=== PATIENT | female | born 1935 | race Caucasian/White ===

== ENCOUNTER 2016-12-29 11:32 | Outpatient (CLI) | payer MEDICARE ==
[2016-12-29 12:48] LABS: Blood, Urine Moderate (Negative); Clarity Slightly Cloudy (Clear); Glucose, Urine (Dipstick) Negative (Negative); Leukocyte Moderate (Negative); Nitrite Negative (Negative); Protein, Urine (Dipstick) 30 mg/dL (Neg-Trace); Specific Gravity, Urine 1.015 (1.005-1.030); Urobilinogen 0.2 mg/dL (0.2-1.0)
[2016-12-29 12:50] LABS: Bilirubin Negative (Negative); Icto Negative (Negative)
[2016-12-29 13:42] LABS: Bacteria/HPF 1+ HPF (None Seen); RBC/HPF 0-3 HPF (0-3); Squamous Epithelial 0-3 HPF (0-3)
== END 2016-12-29 11:33 | disposition home or self-care (01) ==
LOC: NAVSJIPCSP 11:32
PROVIDERS: ATTEND Family Medicine
DX: R30.0 Dysuria (principal)
CPT/HCPCS: 81003; 81015

== ENCOUNTER 2017-02-11 12:05 | Outpatient (CLI) | payer MEDICARE ==
[2017-02-11 13:18] LABS: Hemoglobin A1c 5.9 % (4.0-6.0)
[2017-02-11 13:26] LABS: ALT (SGPT) 7 U/L (8-55); AST (SGOT) 18 U/L (5-34); Albumin 3.3 g/dL (3.4-4.8); Alkaline Phosphatase 77 U/L (40-150); Anion Gap 15 mmol/L (10-20); BUN (Urea Nitrogen) 12 mg/dL (9.8-20.1); Bilirubin, Direct 0.1 mg/dL (0.1-0.3); Bilirubin, Total 0.4 mg/dL (0.2-1.2); Calc. Creatinine Clearance 0 mL/min (70-130); Calcium 9.2 mg/dL (7.8-10.44); Carbon Dioxide 24 mmol/L (23-31); Cardiac Risk 4.8 (Less than 4.5); Chloride 102 mmol/L (98-107); Cholesterol 228 mg/dl (< 200 Desired); Estimated GFR-MDRD 80; Glucose 100 mg/dL (83-110); HDL Cholesterol 48 mg/dL (>60 Neg Risk); LDL Cholesterol, Calculated 162 mg/dL; Potassium 4.4 mmol/L (3.5-5.1); Protein, Total 7.7 g/dL (6.0-8.3); Sodium 137 mmol/L (136-145); Triglycerides 89 mg/dL (Less than 150)
[2017-02-11 13:33] LABS: #Lymphocytes 1.6 thou/uL (1.20-3.40); #Monocytes 0.6 thou/uL (0.11-0.59); #Neutrophils 4.9 thou/uL (1.40-6.50); %Basophils 0.4 % (0.0-1.0); %Eosinophils 0.5 % (0.0-10.0); %Lymphocytes 21.7 % (21.0-51.0); %Monocytes 8.1 % (0.0-10.0); %Neutrophils 69.3 % (42.0-75.0); Anisocytosis MODERATE=16-30 cells (100X) (0-5/hpf); Hemoglobin 10.4 g/dL (12.0-16.0); Hypochromia SLIGHT = 6-15 cells (100X) (0-5/hpf); MDiff Complete? YES; Mean Corpuscular HGB CONC 30.8 g/dL (32.0-36.0); Mean Corpuscular Hemoglobin 24.4 pg (27.0-31.0); Mean Corpuscular Volume 79.3 fl (81.0-99.0); Mean Platelet Volume 5.9 fL (7.4-10.4); Platelet Count 259 thou/uL (130-400); RBC Distribution Width 15.8 % (11.5-14.5); Red Blood Cell (RBC) Count 4.27 mill/uL (4.20-5.40); White Blood Cell (WBC) Count 7.1 thou/uL (4.8-10.8)
== END 2017-02-11 12:06 | disposition home or self-care (01) ==
LOC: NAVSJIPCSP 12:05
PROVIDERS: ATTEND Family Medicine
DX: E03.9 Hypothyroidism, unspecified (principal); I10 Essential (primary) hypertension; I25.10 Atherosclerotic heart disease of native coronary artery without angina pectoris; K21.9 Gastro-esophageal reflux disease without esophagitis; J30.9 Allergic rhinitis, unspecified; Z79.899 Other long term (current) drug therapy
CPT/HCPCS: 36415; 80048; 80061; 80076; 83036; 84443; 85025

== ENCOUNTER 2017-06-18 09:29 | Outpatient (CLI) | payer MEDICARE ==
[2017-06-18 12:34] LABS: ALT (SGPT) 12 U/L (8-55); AST (SGOT) 17 U/L (5-34); Albumin 3.5 g/dL (3.4-4.8); Alkaline Phosphatase 77 U/L (40-150); Bilirubin, Direct 0.1 mg/dL (0.1-0.3); Bilirubin, Total 0.3 mg/dL (0.2-1.2); Cholesterol 176 mg/dl (< 200 Desired); HDL Cholesterol 44 mg/dL (>60 Neg Risk); LDL Cholesterol, Calculated 111 mg/dL; Protein, Total 7.5 g/dL (6.0-8.3); Triglycerides 105 mg/dL (Less than 150)
[2017-06-18 12:40] LABS: Hemoglobin A1c 5.9 % (4.0-6.0)
[2017-06-18 13:01] LABS: #Basophils 0.1 thou/uL (0.0-0.2); #Eosinphils 0.1 thou/uL (0.0-0.7); #Lymphocytes 1.4 thou/uL (1.20-3.40); #Monocytes 0.5 thou/uL (0.11-0.59); #Neutrophils 5.1 thou/uL (1.40-6.50); %Basophils 0.8 % (0.0-1.0); %Eosinophils 1.2 % (0.0-10.0); %Lymphocytes 19.5 % (21.0-51.0); %Monocytes 7.1 % (0.0-10.0); %Neutrophils 71.4 % (42.0-75.0); Anisocytosis SLIGHT = 6-15 cells (100X) (0-5/hpf); Hemoglobin 10.9 g/dL (12.0-16.0); Hypochromia SLIGHT = 6-15 cells (100X) (0-5/hpf); MDiff Complete? YES; Mean Corpuscular HGB CONC 30.7 g/dL (32.0-36.0); Mean Corpuscular Hemoglobin 24.6 pg (27.0-31.0); Mean Corpuscular Volume 80.2 fl (81.0-99.0); Mean Platelet Volume 5.4 fL (7.4-10.4); Microcytosis SLIGHT = 6-15 cells (100X) (0-5/hpf); Platelet Count 223 thou/uL (130-400); RBC Distribution Width 16.7 % (11.5-14.5); Red Blood Cell (RBC) Count 4.44 mill/uL (4.20-5.40); White Blood Cell (WBC) Count 7.2 thou/uL (4.8-10.8)
== END 2017-06-18 09:30 | disposition home or self-care (01) ==
LOC: NAVSJIPCSP 09:29
PROVIDERS: ATTEND Family Medicine
DX: E03.9 Hypothyroidism, unspecified (principal); M06.9 Rheumatoid arthritis, unspecified; I25.10 Atherosclerotic heart disease of native coronary artery without angina pectoris; I10 Essential (primary) hypertension; Z79.899 Other long term (current) drug therapy
CPT/HCPCS: 36415; 80061; 80076; 83036; 84443; 85025

== ENCOUNTER 2019-09-02 11:06 | Emergency (ER) | payer MEDICARE ==
[2019-09-02] MEDS ORDERED: Acetaminophen 325 MG TAB ONE (12:04)
--- NOTE | 2019-09-02 13:07 | RAD ---
PA CHEST AND RIGHT RIBS: INDICATION: Rib pain. FINDINGS: PA chest shows cardiomegaly. There is evidence of bilateral pleural effusions blunting both CP angle s. Mild vascular engorgement. No evidence of right rib fracture identified. IMPRESSION: 1. Cardiomegaly with bilateral effusions. 2. No evidence of right rib fracture. POS: OFF
[2019-09-02] MEDS ORDERED: Furosemide 40 MG TAB ONE (13:55)
[2019-09-02] MEDS ORDERED: Potassium Chloride 20 MEQ TAB ONE (13:55)
== END 2019-09-02 14:43 | disposition home or self-care (01) ==
LOC: NAV ERS 11:06
DX: S20.211A Contusion of right front wall of thorax, initial encounter (principal); J90 Pleural effusion, not elsewhere classified; I10 Essential (primary) hypertension; Z79.899 Other long term (current) drug therapy; W18.30XA Fall on same level, unspecified, initial encounter
CPT/HCPCS: 94799

== ENCOUNTER 2019-11-13 13:31 | Emergency (ER) | payer MEDICARE ==
--- NOTE | 2019-11-13 14:18 | CT ---
EXAM: CT brain without contrast HISTORY: Fell and hit frontal portion of her head. Head trauma. COMPARISON: None TECHNIQUE: Multiple contiguous axial images were obtained and a CT of the brain without contrast. FINDINGS: There are scattered hypodensities in the subcortical and periventricular white matter consi stent with small vessel ischemic disease. There is no evidence of hydrocephalus, intracranial hemorrhage, or extra-axial fluid collection. A calcified mass is seen along the right parietal convexity which could represent a calcified meningi dain or exophytic ostial benign lesion. Soft tissue swelling is seen in the forehead. The underlying calvarium in the frontal region is unremarkable. There is opacification of the left mastoid air cells and middle ear. IMPRESSION: 1. No evidence of acute intracranial abnormality 2. 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
--- NOTE | 2019-11-13 14:20 | CT ---
EXAM: CT of the cervical spine without contrast HISTORY: Neck pain after head trauma COMPARISON: None TECHNIQUE: Multiple contiguous axial images were obtained in a CT of the cervical spine without contr ast. Sagittal and coronal reformats were performed. FINDINGS: The vertebral bodies demonstrate normal height and alignment without fracture or subluxatio n. Moderate degenerative changes are seen throughout the cervical spine. No prevertebral soft tissue swelling is seen. The posterior facets are well aligned. Normal alignment of the skull base with the cervical spine is seen. The lung apices and cervical soft tissues are unremarkable. There is opacification of the left mastoi d air cells and middle ear. IMPRESSION: No evidence of acute osseous abnormality of the cervical spine.
== END 2019-11-13 14:50 | disposition home or self-care (01) ==
LOC: NAV ERS 13:31
DX: S00.83XA Contusion of other part of head, initial encounter (principal); I10 Essential (primary) hypertension; M19.90 Unspecified osteoarthritis, unspecified site; Z79.82 Long term (current) use of aspirin; Z79.899 Other long term (current) drug therapy; Z91.81 History of falling; W10.2XXA Fall (on)(from) incline, initial encounter
CPT/HCPCS: 70450; 72125; L0120

== ENCOUNTER 2020-05-24 13:09 | Emergency (ER) | payer MEDICARE, OTHER ==
[2020-05-24 13:56] LABS: Lactic Acid 1.2 mmol/L (0.5-2.2)
[2020-05-24 14:01] LABS: ALT (SGPT) 7 U/L (8-55); AST (SGOT) 10 U/L (5-34); Albumin 3.4 g/dL (3.4-4.8); Alkaline Phosphatase 75 U/L (40-110); Anion Gap 15 mmol/L (10-20); BUN (Urea Nitrogen) 12 mg/dL (9.8-20.1); Bilirubin, Total 0.3 mg/dL (0.2-1.2); Calc. Creatinine Clearance 0 mL/min (70-130); Calcium 9.1 mg/dL (7.8-10.44); Carbon Dioxide 21 mmol/L (23-31); Chloride 102 mmol/L (98-107); Estimated GFR-MDRD 70; Globulin 4.1 g/dL (2.4-3.5); Glucose 128 mg/dL (83-110); Lipase 13 U/L (8-78); Potassium 3.4 mmol/L (3.5-5.1); Protein, Total 7.5 g/dL (6.0-8.3); Sodium 135 mmol/L (136-145)
[2020-05-24 14:09] LABS: Hemoglobin 10.3 g/dL (12.0-16.0); Mean Corpuscular HGB CONC 29.1 g/dL (32.0-36.0); Mean Corpuscular Volume 75.5 fL (78.0-98.0); Mean Platelet Volume 5.9 fL (7.4-10.4); Platelet Count 241 thou/uL (130-400); RBC Distribution Width 16.6 % (11.5-14.5); Red Blood Cell (RBC) Count 4.68 mill/uL (4.20-5.40); White Blood Cell (WBC) Count 6.3 thou/uL (4.8-10.8)
[2020-05-24] MEDS ORDERED: Sodium Chloride 0.9% 1,000 ML ONE (14:13)
[2020-05-24 14:23] LABS: Anisocytosis SLIGHT = 6-15 cells (100X) (0-5/hpf); Hypochromia SLIGHT = 6-15 cells (100X) (0-5/hpf); Lymphocytes 26 % (21-51); MDiff Complete? YES; Microcytosis SLIGHT = 6-15 cells (100X) (0-5/hpf); Monocytes 6 % (0-10); Neutrophil 68 % (42-75); Platelet Morphology Comment Appears Adequate
[2020-05-24 14:29] LABS: CKMB 0.9 ng/mL (0-6.6)
[2020-05-24] MEDS ORDERED: Aspirin Chewable 81 MG TAB ONE (14:29)
[2020-05-24 15:02] LABS: Bilirubin Moderate (Negative); Blood, Urine Moderate (Negative); Clarity Clear (Clear); Glucose, Urine (Dipstick) Negative (Negative); Ketone, Urine 15 mg/dL (Negative); Leukocyte Negative (Negative); Nitrite Negative (Negative); Protein, Urine (Dipstick) 100 mg/dL (Neg-Trace); Specific Gravity, Urine 1.025 (1.005-1.030); Urobilinogen 0.2 mg/dL (Less than 2); pH, Urine 5.5 (5.0-9.0)
--- NOTE | 2020-05-24 15:13 | RAD ---
SINGLE VIEW OF THE CHEST: 05/24/20 COMPARISON: 10/22/19 HISTORY: Fatigue. FINDINGS: Single view of the chest shows an enlarged but stable cardiomediastinal silhouette with atherosclerot ic calcifications in the aorta. Chronic interstitial lung markings are present. There appears to be a small left pleural effusion, unchanged. Degenerative changes are seen in the spine. IMPRESSION: Cardiomegaly and small left pleural effusion. POS: EAA
[2020-05-24 15:45] LABS: Bacteria/HPF Rare-Few HPF (None Seen); Squamous Epithelial 0-3 HPF (0-3)
== END 2020-05-24 16:39 | disposition short-term general hospital (02) ==
LOC: NAV ERS 13:09
DX: R53.83 Other fatigue (principal); R19.7 Diarrhea, unspecified; Z20.828 Contact with and (suspected) exposure to other viral communicable diseases; R53.1 Weakness; R11.0 Nausea; I10 Essential (primary) hypertension; M19.90 Unspecified osteoarthritis, unspecified site; K21.9 Gastro-esophageal reflux disease without esophagitis; E03.9 Hypothyroidism, unspecified; Z79.82 Long term (current) use of aspirin; Z79.899 Other long term (current) drug therapy
CPT/HCPCS: 51701; 71045; 80053; 81003; 81015; 82553; 83605; 83690; 83880; 84484; 85025; 93005; 96360; J7050

== ENCOUNTER 2020-06-13 14:41 | Emergency (ER) | payer MEDICARE ==
[2020-06-13 16:08] LABS: ALT (SGPT) Less than 6 U/L (8-55); AST (SGOT) 11 U/L (5-34); Albumin 3.1 g/dL (3.4-4.8); Alkaline Phosphatase 67 U/L (40-110); Anion Gap 17 mmol/L (10-20); BUN (Urea Nitrogen) 12 mg/dL (9.8-20.1); Bilirubin, Total 0.3 mg/dL (0.2-1.2); Calc. Creatinine Clearance 0 mL/min (70-130); Calcium 8.8 mg/dL (7.8-10.44); Carbon Dioxide 24 mmol/L (23-31); Chloride 102 mmol/L (98-107); Estimated GFR-MDRD 79; Globulin 3.9 g/dL (2.4-3.5); Glucose 103 mg/dL (83-110); Potassium 3.6 mmol/L (3.5-5.1); Sodium 139 mmol/L (136-145)
[2020-06-13 16:13] LABS: #Monocytes 0.6 thou/uL (0.11-0.59); #Neutrophils 3.2 thou/uL (1.40-6.50); %Basophils 0.4 % (0.0-1.0); %Eosinophils 0.5 % (0.0-10.0); %Lymphocytes 21.1 % (21.0-51.0); %Monocytes 11.8 % (0.0-10.0); %Neutrophils 66.1 % (42.0-75.0); Hemoglobin 9.8 g/dL (12.0-16.0); Mean Corpuscular HGB CONC 28.5 g/dL (32.0-36.0); Mean Corpuscular Hemoglobin 21.4 pg (27.0-31.0); Mean Corpuscular Volume 75.2 fL (78.0-98.0); Mean Platelet Volume 6.4 fL (7.4-10.4); Platelet Count 208 thou/uL (130-400); Red Blood Cell (RBC) Count 4.57 mill/uL (4.20-5.40); White Blood Cell (WBC) Count 4.8 thou/uL (4.8-10.8)
[2020-06-13 16:16] LABS: Bilirubin Negative (Negative); Blood, Urine Moderate (Negative); Glucose, Urine (Dipstick) Negative (Negative); Ketone, Urine Trace mg/dL (Negative); Leukocyte Small (Negative); Nitrite Positive (Negative); Protein, Urine (Dipstick) 100 mg/dL (Neg-Trace); Urobilinogen 0.2 mg/dL (Less than 2); pH, Urine 6.5 (5.0-9.0)
[2020-06-13 16:26] LABS: Bacteria/HPF 4+ HPF (None Seen); Clarity Hazy (Clear); RBC/HPF 0-3 HPF (0-3); Squamous Epithelial 0-3 HPF (0-3)
[2020-06-13] MEDS ORDERED: Cephalexin 250 MG CAP ONE (16:46)
== END 2020-06-13 17:05 | disposition home or self-care (01) ==
LOC: NAV ERS 14:41
DX: N30.00 Acute cystitis without hematuria (principal); D64.9 Anemia, unspecified; I10 Essential (primary) hypertension; E03.9 Hypothyroidism, unspecified; Z79.899 Other long term (current) drug therapy; Z79.82 Long term (current) use of aspirin
CPT/HCPCS: 51701; 80053; 81003; 81015; 83605; 84484; 85025; 87077; 87086; 87186; 93005

== ENCOUNTER 2020-09-24 21:59 | Inpatient (IN) | payer MEDICARE ==
[2020-09-24 22:47] LABS: %Lymphocytes 8.6 % (21.0-51.0); %Monocytes 8.5 % (0.0-10.0); %Neutrophils 82.5 % (42.0-75.0); Hemoglobin 9.5 g/dL (12.0-16.0); Manual Diff?? NO; Mean Corpuscular HGB CONC 30.4 g/dL (32.0-36.0); Mean Corpuscular Hemoglobin 23.8 pg (27.0-31.0); Mean Corpuscular Volume 78.3 fL (78.0-98.0); Mean Platelet Volume 5.4 fL (7.4-10.4); Platelet Count 217 thou/uL (130-400); RBC Distribution Width 17.4 % (11.5-14.5); Red Blood Cell (RBC) Count 3.98 mill/uL (4.20-5.40); White Blood Cell (WBC) Count 6.7 thou/uL (4.8-10.8)
[2020-09-24 22:48] LABS: #Lymphocytes 0.6 thou/uL (1.20-3.40); #Monocytes 0.6 thou/uL (0.11-0.59); #Neutrophils 5.5 thou/uL (1.40-6.50); %Basophils 0.3 % (0.0-1.0); %Eosinophils 0.1 % (0.0-10.0); Hypochromia SLIGHT = 6-15 cells (100X) (0-5/hpf); Microcytosis SLIGHT = 6-15 cells (100X) (0-5/hpf); Platelet Morphology Comment Appears Adequate
[2020-09-24 23:05] LABS: ALT (SGPT) Less than 6 U/L (8-55); AST (SGOT) 11 U/L (5-34); Alkaline Phosphatase 72 U/L (40-110); Anion Gap 17 mmol/L (10-20); BUN (Urea Nitrogen) 11 mg/dL (9.8-20.1); Bilirubin, Total 0.4 mg/dL (0.2-1.2); CK (CPK) 59 U/L (29-168); Calc. Creatinine Clearance 0 mL/min (70-130); Carbon Dioxide 22 mmol/L (23-31); Chloride 99 mmol/L (98-107); Globulin 4.2 g/dL (2.4-3.5); Glucose 143 mg/dL (83-110); Potassium 3.7 mmol/L (3.5-5.1); Protein, Total 7.2 g/dL (6.0-8.3); Sodium 134 mmol/L (136-145)
--- NOTE | 2020-09-24 23:14 | CT ---
EXAM: CT brain without contrast HISTORY: Dizziness and fall with head injury COMPARISON: 06/29/2020 TECHNIQUE: Multiple contiguous axial images were obtained and a CT of the brain without contrast. Sag ittal and coronal reformats were performed. FINDINGS: There are scattered hypodensities in the subcortical and periventricular white matter consi stent with small vessel ischemic disease. There is a stable calcified mass along the posterior right falx which likely represents a calcified meningioma. There is no evidence of hydrocephalus, int racranial hemorrhage, or extra-axial fluid collection. The calvarium and overlying soft tissues are unremarkable. There is a persistent opacification of the left mastoid air cells. The visualized paranasal sinuses and right mastoid air cells are well aerated. IMPRESSION: No evidence of acute intracranial abnormality
--- NOTE | 2020-09-24 23:18 | CT ---
EXAM: CT of the cervical spine without contrast HISTORY: Fall with head trauma and neck pain COMPARISON: 11/13/2019 TECHNIQUE: Multiple contiguous axial images were obtained in a CT of the cervical spine without contr ast. Sagittal and coronal reformats were performed. FINDINGS: The vertebral bodies demonstrate normal height and alignment without fracture or subluxatio n. Moderate degenerative changes are seen throughout the cervical spine. No prevertebral soft tissue swelling is seen. The posterior facets are well aligned. Normal alignment of the skull base with the cervical spine is seen. Calcifications are seen in the carotid arteries. There is opacification the left mastoid air cells. T here are small bilateral pleural effusions. IMPRESSION: 1. No evidence of acute osseous abnormality of the cervical spine. 2. Bilateral pleural effusions
[2020-09-25] MEDS ORDERED: Acetaminophen 325 MG TAB PO PRN (01:15)
[2020-09-25 01:16] LABS: SARS-CoV-2 NAA Rapid Test Not Detected (NotDetected)
[2020-09-25] MEDS ORDERED: Meclizine HCl 25 MG TAB PO PRN (11:41)
--- NOTE | 2020-09-25 13:41 | HP ---
PRINCIPAL DIAGNOSES: Status post fall and deconditioning, for further evaluation, and possible detention placement. BRIEF HISTORY: This is an 85-year-old female, who is a patient of Dr. Thao, apparently fell at home and presented to the emergency room for evaluation. She apparently was cooking in her kitchen and dropped something on the floor. She leaned down to pick pack worker the cup, but felt dizzy and fell forward. She apparently also hit her head as she first fell forward, then tipped backwards. No loss of consciousness. She was unable to get up off the floor for 5 hours. Apparently, the pot she was cooking in was smoking and she had to use her cane to push it to another burner. Workup in the emergency room showed hemoglobin of 9.5, hematocrit of 30.2, potassium was low at 2.7 and she was admitted overnight for observation. No further episodes of lightheadedness or dizziness. Currently resting in bed and denies any concerns expect feeling weak. She states that she really cannot manage herself living alone. She is agreeable for therapy here and possible short-term detention placement. No family at bedside. PAST MEDICAL HISTORY: 1. Rheumatoid arthritis. 2. Hypertension. 3. Dyslipidemia. 4. Hypothyroidism. 5. Osteoarthritis. 6. Overactive bladder with incontinence. PAST SURGICAL HISTORY: None significant. FAMILY HISTORY: Noncontributory to current admission. PSYCHOSOCIAL HISTORY: Lives alone. Denies any tobacco, alcohol, or recreational drug abuse. ALLERGIES: TO CIPROFLOXACIN AND ROSUVASTATIN. REVIEW OF SYSTEMS: GENERAL: Denies any weight loss or fever. CARDIOVASCULAR SYSTEM: Denies any chest pain, shortness of breath, palpitations, PND, orthopnea, or pedal edema. RESPIRATORY SYSTEM: Denies any chronic cough, expectoration, or pleuritic-type chest pain. GASTROINTESTINAL SYSTEM: Denies any nausea, vomiting, diarrhea, constipation, hematemesis, melena, or hematochezia. GENITOURINARY SYSTEM: Occasional incontinence. Denies any dysuria or hematuria. CENTRAL NERVOUS SYSTEM: Generalized weakness with episodes of lightheadedness and dizziness, frequent falls. No loss of consciousness. EXTREMITIES: Significant damage to her hands from rheumatoid arthritis. 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 No cyanosis, clubbing, or edema. SKIN: Denies any rash. ENT: Denies any changes with speech, vision, hearing, or swallowing. PHYSICAL EXAMINATION: GENERAL: Pleasant, 85-year-old, thin female, resting in bed and denies any concerns. She is alert, awake, and oriented x3. VITAL SIGNS: She is afebrile. Heart rate 70, respirations 18, oxygen saturation 94% on room air, blood pressure 128/68. HEENT: Normocephalic and atraumatic. Pupils are equally reactive to light and accommodation. No JVD, thyromegaly, cervical adenopathy, or throat exudates. No carotid bruits. CARDIOVASCULAR SYSTEM: S1 and S2 plus. Rate and rhythm regular. RESPIRATORY SYSTEM: Normal vesicular breath sounds heard in all lung [place]. ABDOMEN: Soft and nontender. Bowel sounds heard in all quadrants. EXTREMITIES: Without cyanosis or clubbing. Evidence for long-standing rheumatoid arthritis is noted with joint destruction. CENTRAL NERVOUS SYSTEM: Awake and responsive. Cranial nerves 2 through 12 are intact. Generalized weakness. Limited exam due to the patient too weak to stand to do her Romberg. LABORATORY VALUES: White count is 6.7, hemoglobin and hematocrit are 9.5 and 31.2. Sodium 134, potassium 3.7, BUN and creatinine are 11 and 0.7. IMPRESSION: 1. Recent fall with lightheadedness and dizziness. 2. Hypertension. 3. Dyslipidemia. 4. Hypothyroidism. 5. Rheumatoid arthritis. 6. Overactive bladder with urinary incontinence. 7. Osteoarthritis. 8. Deconditioning. 9. Anemia, likely due to chronic disease. PLAN: 1. Continue home medications. 2. Hold Crestor as there is allergy listed for Crestor. 3. Heart healthy diet. 4. Encourage p.o. fluid intake. 5. Fall precautions. 6. PT/OT eval and treat. 7. Case Management consult for possible detention placement. 8. DVT prophylaxis with PlexiPulses. 9. Decubitus precautions. 10. Stress ulcer prophylaxis, she is on Prilosec. 11. Dr. Master swanson [facility]. Job ID: [id number]
[2020-09-25] MEDS: Acetaminophen 325 MG TAB PO PRN (21:20)
[2020-09-26] MEDS: Levothyroxine Sodium 25 MCG TAB PO SCH (05:29)
[2020-09-26 05:41] LABS: Anion Gap 12 mmol/L (10-20); BUN (Urea Nitrogen) 14 mg/dL (9.8-20.1); Calc. Creatinine Clearance 38 mL/min (70-130); Calcium 8.5 mg/dL (7.8-10.44); Carbon Dioxide 27 mmol/L (23-31); Chloride 104 mmol/L (98-107); Glucose 112 mg/dL (83-110); Potassium 3.5 mmol/L (3.5-5.1); Sodium 139 mmol/L (136-145)
[2020-09-26 05:57] LABS: Hemoglobin 8.6 g/dL (12.0-16.0); MDiff Complete? YES; Manual Diff?? YES; Mean Corpuscular HGB CONC 30.2 g/dL (32.0-36.0); Mean Corpuscular Hemoglobin 23.8 pg (27.0-31.0); Mean Platelet Volume 5.5 fL (7.4-10.4); Neutrophil 64 % (42-75); Platelet Count 217 thou/uL (130-400); RBC Distribution Width 17.4 % (11.5-14.5); Red Blood Cell (RBC) Count 3.62 mill/uL (4.20-5.40)
[2020-09-26 05:58] LABS: Band 9 % (5-11); Eosinophils 3 % (0-10); Hypochromia MODERATE=16-30 cells (100X) (0-5/hpf); Lymphocytes 21 % (21-51); Microcytosis SLIGHT = 6-15 cells (100X) (0-5/hpf); Monocytes 3 % (0-10); Platelet Morphology Comment Appears Adequate
[2020-09-26] MEDS: Amlodipine 5 MG TAB PO SCH (08:34)
[2020-09-26] MEDS: Aspirin 81 mg Enteric Coated Tablet PO SCH (08:34)
[2020-09-26] MEDS: FLUoxetine HCl 20 MG CAP PO SCH (08:35)
[2020-09-26] MEDS: Fluticasone Propionate Nasal Spray 16 gm Bottle NASAL SCH (08:35)
[2020-09-26] MEDS: Folic Acid 1 MG TAB PO SCH (08:36)
[2020-09-26] MEDS: METHYLCELLULOSE 500 MG PO SCH (08:36)
[2020-09-26] MEDS: OXYBUTYNIN 15 MG PO SCH (09:11)
--- NOTE | 2020-09-26 10:00 | PRG ---
DATE OF SERVICE: 09/26/2020 SUBJECTIVE: The patient is a pleasant 85-year-old female, here status post fall where she did hit her head. She is here for deconditioning and possible physical therapy as well. REVIEW OF SYSTEMS: Denies any fever, chills, cough, congestion, chest pain, palpitations, nausea, vomiting, or diarrhea. OBJECTIVE: VITAL SIGNS: Temperature 97 degrees Fahrenheit, pulse 75, respirations 18, O2 sats 93% to 97% on room air, blood pressure 129/63 to 156/67. IMPRESSION: 1. Recent fall, etiology unknown. 2. Hypertension. 3. Hyperlipidemia. 4. Hypothyroidism. 5. Rheumatoid arthritis. 6. Overactive bladder with urinary incontinence. 7. Osteoarthritis. 8. Deconditioning. 9. Anemia, likely due to chronic disease. PLAN: 1. Continue home medications. 2. Heart-healthy diet. 3. PO fluid intake. 4. Fall precautions. 5. PT/OT eval and treat for balance and strength. 6. Discharge planning: Case management consult for skilled nursing placement. The patient would benefit from this as she has a history of multiple falls lately and is unable to perform her activities of daily living due to her severe rheumatoid arthritis. We will see if [facility] is a possibility for her seeing as her previous PCP does still round at that skilled nursing. 7. DVT prophylaxis. 8. Decubitus precautions. 9. Stress ulcer prophylaxis, on Prilosec. Job ID: [id number] [facility]
[2020-09-26] MEDS: Acetaminophen 325 MG TAB PO PRN (16:55)
[2020-09-26] MEDS ORDERED: Methotrexate Sodium 2.5 MG TAB PO SCH (21:00)
[2020-09-27] MEDS: Levothyroxine Sodium 25 MCG TAB PO SCH (05:26)
[2020-09-27] MEDS: Aspirin 81 mg Enteric Coated Tablet PO SCH (08:28)
[2020-09-27] MEDS: FLUoxetine HCl 20 MG CAP PO SCH (08:28)
[2020-09-27] MEDS: Fluticasone Propionate Nasal Spray 16 gm Bottle NASAL SCH (08:28)
[2020-09-27] MEDS: Amlodipine 5 MG TAB PO SCH (08:29)
[2020-09-27] MEDS: Folic Acid 1 MG TAB PO SCH (08:29)
[2020-09-27] MEDS: METHYLCELLULOSE 500 MG PO SCH (08:29)
[2020-09-27] MEDS: OXYBUTYNIN 15 MG PO SCH (09:03)
[2020-09-28 05:35] LABS: Anion Gap 15 mmol/L (10-20); BUN (Urea Nitrogen) 17 mg/dL (9.8-20.1); Calc. Creatinine Clearance 39 mL/min (70-130); Calcium 8.4 mg/dL (7.8-10.44); Carbon Dioxide 22 mmol/L (23-31); Chloride 103 mmol/L (98-107); Glucose 111 mg/dL (83-110); Potassium 4.2 mmol/L (3.5-5.1); Sodium 136 mmol/L (136-145)
[2020-09-28 05:36] LABS: #Eosinphils 0.1 thou/uL (0.0-0.7); #Lymphocytes 0.8 thou/uL (1.20-3.40); #Monocytes 0.3 thou/uL (0.11-0.59); #Neutrophils 2.7 thou/uL (1.40-6.50); %Basophils 1.2 % (0.0-1.0); %Eosinophils 1.4 % (0.0-10.0); %Lymphocytes 19.9 % (21.0-51.0); %Monocytes 6.6 % (0.0-10.0); %Neutrophils 71.1 % (42.0-75.0); Anisocytosis SLIGHT = 6-15 cells (100X) (0-5/hpf); Hypochromia SLIGHT = 6-15 cells (100X) (0-5/hpf); MDiff Complete? YES; Mean Corpuscular HGB CONC 29.6 g/dL (32.0-36.0); Mean Corpuscular Hemoglobin 23.7 pg (27.0-31.0); Mean Corpuscular Volume 80.1 fL (78.0-98.0); Mean Platelet Volume 5.5 fL (7.4-10.4); Platelet Count 251 thou/uL (130-400); Platelet Morphology Comment Appears Adequate; RBC Distribution Width 17.8 % (11.5-14.5); Red Blood Cell (RBC) Count 3.81 mill/uL (4.20-5.40); White Blood Cell (WBC) Count 3.8 thou/uL (4.8-10.8)
[2020-09-28] MEDS: Levothyroxine Sodium 25 MCG TAB PO SCH (05:51)
[2020-09-28] MEDS: Fluticasone Propionate Nasal Spray 16 gm Bottle NASAL SCH (08:59)
[2020-09-28] MEDS: Aspirin 81 mg Enteric Coated Tablet PO SCH (09:00)
[2020-09-28] MEDS: FLUoxetine HCl 20 MG CAP PO SCH (09:00)
[2020-09-28] MEDS: METHYLCELLULOSE 500 MG PO SCH (09:01)
[2020-09-28] MEDS: Amlodipine 5 MG TAB PO SCH (09:01)
[2020-09-28] MEDS: OXYBUTYNIN 15 MG PO SCH (09:01)
[2020-09-28] MEDS: Folic Acid 1 MG TAB PO SCH (09:01)
[2020-09-28] MEDS: Acetaminophen 325 MG TAB PO PRN (17:21)
[2020-09-29] MEDS: Levothyroxine Sodium 25 MCG TAB PO SCH (05:01)
[2020-09-29] MEDS: Aspirin 81 mg Enteric Coated Tablet PO SCH (08:59)
[2020-09-29] MEDS: Fluticasone Propionate Nasal Spray 16 gm Bottle NASAL SCH (08:59)
[2020-09-29] MEDS: Folic Acid 1 MG TAB PO SCH (09:00)
[2020-09-29] MEDS: Amlodipine 5 MG TAB PO SCH (09:00)
[2020-09-29] MEDS: FLUoxetine HCl 20 MG CAP PO SCH (09:00)
[2020-09-29] MEDS: OXYBUTYNIN 15 MG PO SCH (09:02)
[2020-09-29] MEDS: METHYLCELLULOSE 500 MG PO SCH (09:02)
--- NOTE | 2020-09-29 09:23 | CT ---
CT Brain WO Con: 09/29/2020 8:38 AM CLINICAL HISTORY: History of facial drooping with new onset confusion. IMAGING TECHNIQUE: Multiple CT images were obtained of the brain without IV contrast. COMPARISON: CT the brain without contrast dated September 24, 2020 FINDINGS: BRAIN: Evidence of acute infarct: None. Evidence of chronic ischemic change:None. Evidence of intracranial hemorrhage: None. Evidence of brain volume loss:There is diffuse moderate generalized cerebral and cerebellar atrophy Evidence of midline shift: Third ventricle and septum pellucidum are midline. Ventricles: Normal. No hydrocephalus. SKULL: There is an extra-axial calcified mass along the right parietal region which is stable. VISUALIZED PARANASAL SINUSES: Clear. MASTOID AIR CELLS: There is complete opacification left mastoid air cells which is stable. Right mas toid air cells are clear. EXTRACRANIAL SOFT TISSUES: Normal. IMPRESSION: No acute intracranial abnormality. Stable complete opacification of left mastoid air cells.
--- NOTE | 2020-09-29 10:09 | PRG ---
DATE OF SERVICE: 09/29/2020 SUBJECTIVE: The patient is doing well. She is stable overall; however, nursing staff noticed that the patient has slight droop on the right side, very minimal, but somewhat noticeable to nursing staff. Also, noticed that her mentation was a bit confused as well. She kept saying that she had UTI and that is why she was here in the hospital; however, I feel like she is just stating that she feels like she has a UTI right now and when talking to her, she does remember that she fell and that was the reason why she came into the hospital. However, because she did fall and she is having slight neuro changes, we will get a CT brain without contrast to monitor for any changes in mental status. If this is unremarkable, we may do CT with contrast to see if there is any major bleeding or MRI. Her NIH stroke scale was 3 per nursing staff as well. REVIEW OF SYSTEMS: Denies any fever, chills, cough, congestion, nausea, vomiting, or diarrhea. The patient does report urinary frequency, but no dysuria. She does state that these are her usual symptoms for UTI; however, she does not usually get pain with it. OBJECTIVE: VITAL SIGNS: Today, temperature 97.7, pulse 69 to 83, respirations 18, O2 sats 94% to 95% on room air, blood pressure 144/70 to 172/71. GENERAL: Well appearing, well developed, somewhat frail 85-year-old female, lying in bed, in no acute distress. HEENT: PERRLA. EOMI. She can extend her tongue without any deviation. NECK: No thyromegaly. No JVD. HEART: Regular rate and rhythm. No murmurs, gallops, or rubs. RESPIRATORY: Clear to auscultation bilaterally. No wheezes or rhonchi. ABDOMEN: Soft, nontender to palpation. Bowel sounds are positive in all four quadrants. EXTREMITIES: No cyanosis. The patient does have significant ulnar deviation on bilateral hands, which is severely debilitating for the patient. NEURO: Cranial nerves II through XII intact. No focal deficit. Slight droop on the right side of the face; however, the patient does have somewhat of a droop bilaterally. Botanical Technical Officer strength equal bilaterally, although diminished due to her ulnar deviation. Again, NIH stroke scale of 3 per nursing staff. IMPRESSION: 1. Recent fall, etiology unknown. 2. Questionable neurologic changes due to fall versus urinary tract infection. 3. Hypertension. 4. Hyperlipidemia. 5. Hypothyroidism. 6. Rheumatoid arthritis with ulnar deviation of fingers bilaterally. 7. Overactive bladder with urinary incontinence. 8. Osteoarthritis. 9. Deconditioning. 10. Anemia, likely due to chronic disease. PLAN: 1. We have ordered a CT head without contrast to assess for any changes. We will follow this up with possible MRI or CT with contrast depending on findings. 2. UA ordered for possible urinary tract infection. Continue p.o. fluid intake. Continue fall precautions. Continue PT/OT services. 3. Discharge planning. Case Management consult for half-way placement. Again, talked to the patient today that she will benefit from a half-way placement due to her multiple falls and severe rheumatoid arthritis. 4. DVT prophylaxis. 5. Decubitus precautions. 6. Stress ulcer prophylaxis, on Prilosec. Job ID: [id number]
[2020-09-29] MEDS: Lisinopril 10 MG TAB PO SCH (10:39)
[2020-09-29 13:06] LABS: Bilirubin Negative (Negative); Blood, Urine Large (Negative); Clarity Clear (Clear); Glucose, Urine (Dipstick) Negative (Negative); Ketone, Urine Negative (Negative); Leukocyte Negative (Negative); Nitrite Negative (Negative); Protein, Urine (Dipstick) 100 mg/dL (Neg-Trace); Urobilinogen 0.2 mg/dL (Less than 2); pH, Urine 6.5 (5.0-9.0)
[2020-09-29 13:18] LABS: Urine Culture Reflex No No
[2020-09-29 13:23] LABS: Bacteria/HPF None Seen HPF (None Seen); RBC/HPF Greater than 50 HPF (0-3); Squamous Epithelial 0-3 HPF (0-3); WBC/HPF 0-3 HPF (0-3)
[2020-09-29] MEDS: Oxybutynin 5 MG TAB PO SCH ×2 (15:23→20:48)
[2020-09-29 16:49] VITALS: BMI 20.6
[2020-09-30] MEDS: Levothyroxine Sodium 25 MCG TAB PO SCH (06:16)
[2020-09-30] MEDS: Amlodipine 5 MG TAB PO SCH (08:50)
[2020-09-30] MEDS: Fluticasone Propionate Nasal Spray 16 gm Bottle NASAL SCH (08:51)
[2020-09-30] MEDS: Folic Acid 1 MG TAB PO SCH (08:51)
[2020-09-30] MEDS: FLUoxetine HCl 20 MG CAP PO SCH (08:51)
[2020-09-30] MEDS: Aspirin 81 mg Enteric Coated Tablet PO SCH (08:51)
[2020-09-30] MEDS: Lisinopril 10 MG TAB PO SCH (08:51)
[2020-09-30] MEDS: METHYLCELLULOSE 500 MG PO SCH (08:52)
[2020-09-30] MEDS: Oxybutynin 5 MG TAB PO SCH ×3 (08:52→20:29)
[2020-09-30] MEDS: Acetaminophen 325 MG TAB PO PRN (08:54)
[2020-10-01] MEDS: Levothyroxine Sodium 25 MCG TAB PO SCH (06:20)
[2020-10-01] MEDS: Fluticasone Propionate Nasal Spray 16 gm Bottle NASAL SCH (08:27)
[2020-10-01] MEDS: Aspirin 81 mg Enteric Coated Tablet PO SCH (08:27)
[2020-10-01] MEDS: Amlodipine 5 MG TAB PO SCH (08:27)
[2020-10-01] MEDS: FLUoxetine HCl 20 MG CAP PO SCH (08:28)
[2020-10-01] MEDS: Folic Acid 1 MG TAB PO SCH (08:28)
[2020-10-01] MEDS: METHYLCELLULOSE 500 MG PO SCH (08:28)
[2020-10-01] MEDS: Lisinopril 10 MG TAB PO SCH (08:28)
[2020-10-01] MEDS: Oxybutynin 5 MG TAB PO SCH ×3 (08:29→21:08)
[2020-10-02] MEDS: Levothyroxine Sodium 25 MCG TAB PO SCH (05:23)
--- NOTE | 2020-10-02 06:24 | PRG ---
DATE OF SERVICE: 10/01/[address] Ramesh Thao. SUBJECTIVE: The patient lying in bed, resting well. No complaints. Apparently, she has fallen several times recently, but has been found to have no significant abnormalities on CT scan and normal urinalysis, which has had infections in the past causing change in mental status. The family is considering detention placement. OBJECTIVE: VITAL SIGNS: Shows temperature is 98, pulse 84, respirations 18, O2 saturations 94% on room air, and blood pressure 132/78. LUNGS: Clear. CARDIAC: Shows regular rhythm. ABDOMEN: Soft and nontender. NEUROLOGICAL: Shows no significant focal findings. ASSESSMENT: 1. Severe rheumatoid arthritis. 2. Recurrent falls. 3. No evidence of acute intracranial injury. 4. No evidence of urinary tract infection. PLAN: Discuss detention placement with PT, OT, and family at family conference today. Job ID: [id number]
[2020-10-02] MEDS: Amlodipine 5 MG TAB PO SCH (08:35)
[2020-10-02] MEDS: FLUoxetine HCl 20 MG CAP PO SCH (08:35)
[2020-10-02] MEDS: Oxybutynin 5 MG TAB PO SCH ×3 (08:35→21:32)
[2020-10-02] MEDS: Aspirin 81 mg Enteric Coated Tablet PO SCH (08:35)
[2020-10-02] MEDS: Fluticasone Propionate Nasal Spray 16 gm Bottle NASAL SCH (08:35)
[2020-10-02] MEDS: Lisinopril 10 MG TAB PO SCH (08:36)
[2020-10-02] MEDS: Folic Acid 1 MG TAB PO SCH (08:36)
[2020-10-02] MEDS: METHYLCELLULOSE 500 MG PO SCH (08:36)
--- NOTE | 2020-10-02 21:17 | PRG ---
DATE OF SERVICE: 10/02/2020 SUBJECTIVE: The patient is a confused elderly white female, who has become much more agitated and restless over the last several days with inability to maintain ADLs alone. She has been preparing for discharge to the senior living because of underlying diagnosis of recurrent falls from severe rheumatoid arthritis. She has had no history of acute intracranial injury or urinary tract infection. However, she has become much more confused and therefore will be evaluated for any type of metabolic encephalopathy. OBJECTIVE: VITAL SIGNS: Temperature is 97.7, pulse 83, respirations 18, O2 saturation is 96% on room air, and blood pressure 142/63. LUNGS: Clear. CARDIAC: Shows regular rhythm. ABDOMEN: Soft and nontender. ASSESSMENT: 1. Dementia with increased agitation recently and we will check for possible causes of metabolic encephalopathy. 2. Rheumatoid arthritis with recurrent falls. No evidence for acute injury and with recent CT scan of the brain on September 29, showing no acute intracranial abnormality. PLAN: 1. Obtain CBC, urinalysis, and comprehensive metabolic profile today. 2. Give 25 mg of Seroquel tonight and monitor response. Job ID: [id number]
[2020-10-02 21:50] LABS: ALT (SGPT) 7 U/L (8-55); AST (SGOT) 10 U/L (5-34); Albumin 2.9 g/dL (3.4-4.8); Alkaline Phosphatase 66 U/L (40-110); Anion Gap 16 mmol/L (10-20); BUN (Urea Nitrogen) 21 mg/dL (9.8-20.1); Bilirubin, Total 0.4 mg/dL (0.2-1.2); Calc. Creatinine Clearance 38 mL/min (70-130); Calcium 8.8 mg/dL (7.8-10.44); Carbon Dioxide 21 mmol/L (23-31); Chloride 103 mmol/L (98-107); Glucose 109 mg/dL (83-110); Protein, Total 6.9 g/dL (6.0-8.3); Sodium 136 mmol/L (136-145)
[2020-10-02 21:57] LABS: Anisocytosis SLIGHT = 6-15 cells (100X) (0-5/hpf); Band 9 % (5-11); Hemoglobin 8.6 g/dL (12.0-16.0); Hypochromia SLIGHT = 6-15 cells (100X) (0-5/hpf); Lymphocytes 27 % (21-51); MDiff Complete? YES; Mean Corpuscular HGB CONC 29.9 g/dL (32.0-36.0); Mean Corpuscular Hemoglobin 23.6 pg (27.0-31.0); Mean Platelet Volume 5.5 fL (7.4-10.4); Microcytosis SLIGHT = 6-15 cells (100X) (0-5/hpf); Neutrophil 64 % (42-75); Platelet Count 242 thou/uL (130-400); Platelet Morphology Comment Appears Adequate; RBC Distribution Width 17.7 % (11.5-14.5); Red Blood Cell (RBC) Count 3.65 mill/uL (4.20-5.40); White Blood Cell (WBC) Count 4.2 thou/uL (4.8-10.8)
[2020-10-02 23:02] LABS: Bilirubin Negative (Negative); Blood, Urine Trace (Negative); Clarity Clear (Clear); Glucose, Urine (Dipstick) Negative (Negative); Ketone, Urine Negative (Negative); Leukocyte Negative (Negative); Nitrite Negative (Negative); Protein, Urine (Dipstick) 100 mg/dL (Neg-Trace); Urobilinogen 0.2 mg/dL (Less than 2)
[2020-10-02 23:04] LABS: Urine Culture Reflex No No
[2020-10-02 23:08] LABS: Bacteria/HPF None Seen HPF (None Seen); RBC/HPF 0-3 HPF (0-3); Squamous Epithelial None Seen HPF (0-3); WBC/HPF 0-3 HPF (0-3)
[2020-10-03] MEDS: Levothyroxine Sodium 25 MCG TAB PO SCH (05:56)
[2020-10-03] MEDS: FLUoxetine HCl 20 MG CAP PO SCH (08:21)
[2020-10-03] MEDS: Oxybutynin 5 MG TAB PO SCH (08:22)
[2020-10-03] MEDS: Folic Acid 1 MG TAB PO SCH (08:22)
[2020-10-03] MEDS: Lisinopril 10 MG TAB PO SCH (08:22)
[2020-10-03] MEDS: Aspirin 81 mg Enteric Coated Tablet PO SCH (08:22)
[2020-10-03] MEDS: Amlodipine 5 MG TAB PO SCH (08:22)
[2020-10-03] MEDS: METHYLCELLULOSE 500 MG PO SCH (08:25)
[2020-10-03] MEDS: Fluticasone Propionate Nasal Spray 16 gm Bottle NASAL SCH (08:26)
[2020-10-03] MEDS: Acetaminophen 325 MG TAB PO PRN (11:09)
[2020-10-03 12:38] VITALS: TEMP 98.5
[2020-10-03 17:07] VITALS: BP 115/53
--- NOTE | 2020-10-04 23:30 | PQF ---
CLINICAL DOCUMENTATION CLARIFICATION FORM: Dear : Sahil Spivey Date / Time: 10/04/2020 Please exercise your independent, professional judgment in responding to the clarification form. Clinical indicators are provided on the bottom of this form for your review Please check appropriate box(es): [ ] Metabolic encephalopathy [ ] Transient Alteration of Awareness [ ] Other diagnosis [ X ] Unable to determine In addition, please specify: Present on Admission (POA): [ ] Yes [ ] No [ X ] Unable to determine To be completed by CDI/Coding staff for physician review: Present Clinical Indicators - Signs / Symptoms / Labs Results and Location in Medical Record [ x ] Dementia with increased agitation recently and we will check for possible causes of metabolic encephalopathy Progress note 10/02/20 by Ronnie Prince [ x ] Patient is a confused elderly white female, who has become much more agitated and restless over the last several days with inability to maintain ADLs alone Progress note 10/02/20 by Rnonie Prince [ x ] She has become much more confused and therefore will be evaluated for any type of metabolic encephalopathy Progress note 10/02/20 by Ronnie Prince Present Risk Factors Results and Location in Medical Record [ x ] Dementia with agitation, recurrent falls from rheumatoid arthritis Progress note 10/02/20 by Ronnie Prince Present Treatments Results and Location in Medical Record [ x ] CT scans of the brain Reports [ x ] Obtain CBC, urinalysis and comprehensive metabolic profile today Progress note 10/02 by Ronnie Prince [ x ] Seroquel 25 mg Medications CDS/Youth Development Specialist Signature: SJ1 Phone #: Date/Time: 10/04/2020 This is a permanent part of the Medical Record [facility]
== END 2020-10-03 15:40 | DRG 546 ==
LOC: NAV ERS 21:59 → NAV ACUTE 09-25 00:13 → OBSVTOIN 09-25 11:44 → NAV ACUTE 09-26 14:38
PROVIDERS: ADMIT Family Medicine; ATTEND Family Medicine
DX: M06.9 Rheumatoid arthritis, unspecified (principal); F03.91 Unspecified dementia, unspecified severity, with behavioral disturbance; I10 Essential (primary) hypertension; E78.5 Hyperlipidemia, unspecified; E03.9 Hypothyroidism, unspecified; M19.90 Unspecified osteoarthritis, unspecified site; Z20.828 Contact with and (suspected) exposure to other viral communicable diseases; R42 Dizziness and giddiness; D63.8 Anemia in other chronic diseases classified elsewhere; R45.1 Restlessness and agitation; R32 Unspecified urinary incontinence; R53.81 Other malaise; N32.81 Overactive bladder; Z88.1 Allergy status to other antibiotic agents; Z88.8 Allergy status to other drugs, medicaments and biological substances; Z91.81 History of falling
CPT/HCPCS: 0240U; 70450; 72125; 80048; 80053; 81001; 82550; 85025; 93005; G0378; J8610

== ENCOUNTER 2020-11-11 17:27 | Observation (INO) | payer MEDICARE ==
[2020-11-11] MEDS ORDERED: Sodium Chloride 0.9% 500 ML ONE (18:28)
[2020-11-11] MEDS ORDERED: cefTRIAXone\\ROCEPHIN 1 GM VIAL ONE (18:52)
--- NOTE | 2020-11-11 19:09 | RAD ---
Frontal radiograph chest: 11/11/2020 COMPARISON: 06/29/2020 HISTORY: Altered mental status FINDINGS: There is a small stable pleural effusion on the right. There is a small but and large pleur al effusion on the left. There is new pulmonary vascular congestion and new linear interstitial density in the perihilar regions and left lung base. No pneumothorax is evident. There is vascular ca lcification of the aortic arch. IMPRESSION: Interval development of interstitial prominence and pulmonary vascular congestion with en larging left and stable right small pleural effusions. Findings are most consistent with pulmonary edema. Infectious pneumonitis or aspiration cannot be excluded. Recommend follow-up imaging following treatment.
[2020-11-11] MEDS ORDERED: Sodium Chloride 0.45% 1,000 ML ONE (19:30)
[2020-11-11 20:23] LABS: SARS-CoV-2 NAA Rapid Test Not Detected (NotDetected)
[2020-11-11 21:01] VITALS: BMI 18.7
[2020-11-11] MEDS ORDERED: Sodium Chloride 0.45% 1,000 ML IV SCH (22:00)
[2020-11-12 05:51] LABS: #Eosinphils 0.1 thou/uL (0.0-0.7); #Monocytes 0.5 thou/uL (0.11-0.59); %Basophils 0.4 % (0.0-1.0); %Eosinophils 0.7 % (0.0-10.0); %Lymphocytes 12.9 % (21.0-51.0); Anisocytosis SLIGHT = 6-15 cells (100X) (0-5/hpf); Hemoglobin 8.9 g/dL (12.0-16.0); Hypochromia MODERATE=16-30 cells (100X) (0-5/hpf); MDiff Complete? YES; Mean Corpuscular Hemoglobin 23.2 pg (27.0-31.0); Mean Corpuscular Volume 77.1 fL (78.0-98.0); Mean Platelet Volume 5.3 fL (7.4-10.4); Platelet Count 229 thou/uL (130-400); Platelet Morphology Comment Appears Adequate; RBC Distribution Width 17.4 % (11.5-14.5); Red Blood Cell (RBC) Count 3.84 mill/uL (4.20-5.40); White Blood Cell (WBC) Count 7.5 thou/uL (4.8-10.8)
[2020-11-12 05:55] LABS: Anion Gap 15 mmol/L (10-20); BUN (Urea Nitrogen) 14 mg/dL (9.8-20.1); Calc. Creatinine Clearance 43 mL/min (70-130); Calcium 8.5 mg/dL (7.8-10.44); Carbon Dioxide 23 mmol/L (23-31); Chloride 104 mmol/L (98-107); Glucose 99 mg/dL (83-110); Sodium 139 mmol/L (136-145)
[2020-11-12] MEDS ORDERED: Sulfameth/Trimethoprim DS 800-160mg TAB PO SCH (09:00)
[2020-11-12 12:34] VITALS: BP 156/67; TEMP 96.5
--- NOTE | 2020-11-13 07:22 | SS ---
DATE OF ADMISSION: 11/11/2020 DATE OF DISCHARGE: 11/12/2020 ADMIT DIAGNOSIS: Confusion with urinary tract infection along with chronic baseline dementia. HOSPITAL COURSE: This is a pleasant -[id number] female with history of rheumatoid arthritis, Alzheimer dementia, frequent UTIs, debility, high blood pressure. She comes in for UTI. The patient was seen in my clinic yesterday and the son had noticed increased confusion since [facility]. The patient did report to her caregiver that she had pain with urination. The patient does have baseline dementia; however, son has noticed that it has worsened over the past 2 weeks. Overall, the patient is weak and malnourished. The patient has had a 30-pound weight loss over the past year and has become more cachectic over that time. On admission here to [facility], the patient was afebrile, in no acute distress. However, urinalysis in the ER did show a urinary tract infection. The patient was given 1 g of Rocephin in the ER and was transitioned to Bactrim p.o. The patient tolerated the Bactrim dose well and received 1 L of fluids. The patient's mentation improved slightly. She was able to tell us her name and she was aware that she was getting antibiotics. However, she did tell the nursing home assistant to put her food on the floor because she eats better on the floor and would rather be down there. The patient is still confused and thought it was Wednesday today. Overall, the patient will be discharged home today; however, we will get a hospice consult for her due to her weight loss and declining mental status with her dementia and also with her rheumatoid arthritis. I have written for a consult with her home health agency and will follow up with that. We will see her back in clinic next week for followup for UTI, but we will follow up with the hospice referral as well. PAST MEDICAL HISTORY: 1. Rheumatoid arthritis. 2. Alzheimer dementia. 3. Debility. 4. Cachexia. 5. 30-pound weight loss over the last year. 6. Confusion. 7. Frequent UTIs. PAST SURGICAL HISTORY: Noncontributory. FAMILY HISTORY: Noncontributory. SOCIAL HISTORY: Denies any tobacco, alcohol, or illicit drug use. ALLERGIES: THE PATIENT ALLERGIC TO CIPRO AND ROSUVASTATIN. REVIEW OF SYSTEMS: Limited due to the patient's dementia. However, at this time, she denies any fever, chills, cough, congestion, palpitations, chest pain, nausea, vomiting, or diarrhea. OBJECTIVE: VITAL SIGNS: Temperature 96.5 to 98.1, pulse 90 to 93, blood pressure 141/64 to 156/67, respirations 16 to 18, and O2 sats 94% on room air. GENERAL: Frail 85-year-old female with ulnar deviation of her hands, lying in bed, in no acute distress. HEENT: Normocephalic and atraumatic. PERRLA. EOMI. CARDIOVASCULAR: Regular rate and rhythm. No murmurs, gallops, or rubs. RESPIRATORY: Clear to auscultation bilaterally. No wheezes or rhonchi. ABDOMEN: Soft, nontender to palpation. Bowel sounds positive in all four quadrants. EXTREMITIES: Generalized weakness. NEUROLOGIC: Ulnar deviation of bilateral hands. Mentation, alert to self only. The patient thought it was Wednesday today. She has moments of lucency, where she knows that she is getting antibiotics for UTI. However, then we will talk about people that she has not seen in over 40 years and stated that they are in the room with her right now. LABORATORY DATA: Urinalysis; urine protein 100, urine ketones trace, blood trace, bilirubin small, leukocyte esterase is trace, wbc's 7 to 10, bacteria rare to few. WBC 7.5, hemoglobin 8.9, hematocrit 29.6, platelets 229. Sodium 139, potassium 3.0, chloride 104, carbon dioxide 23, BUN 14, creatinine 0.64, GFR of 88, and BNP is 850. ASSESSMENT: 1. Urinary tract infection causing weakness on top of chronic debility. 2. Confusion on top of chronic baseline dementia. 3. Rheumatoid arthritis causing significant ulnar deviation of bilateral hands. 4. Hypertension. PLAN: 1. Discharge the patient home on Bactrim for 5 days. The patient will need to be monitored for any increase in confusion or increase in urinary symptoms. 2. Continue home antihypertensives. 3. Hospice consult due to weight loss and declining dementia and mental status. 4. Follow up with me in 1 week. 5. Continue to encourage hydration and encouraged the patient to increase dietary potassium intake as well. Job ID: [id number]
== END 2020-11-12 16:00 | disposition hospice, home (50) ==
LOC: NAV ERS 17:27 → NAV ACUTE 20:49
PROVIDERS: ADMIT Family Medicine; ATTEND Family Medicine
DX: N39.0 Urinary tract infection, site not specified (principal); G30.9 Alzheimer's disease, unspecified; F02.80 Dementia in other diseases classified elsewhere, unspecified severity, without behavioral disturbance, psychotic disturbance, mood disturbance, and anxiety; M06.9 Rheumatoid arthritis, unspecified; I10 Essential (primary) hypertension; R53.81 Other malaise; Z79.82 Long term (current) use of aspirin; Z79.899 Other long term (current) drug therapy; Z88.1 Allergy status to other antibiotic agents; Z88.8 Allergy status to other drugs, medicaments and biological substances; Z95.1 Presence of aortocoronary bypass graft; Z20.822 Contact with and (suspected) exposure to COVID-19; R39.9 Unspecified symptoms and signs involving the genitourinary system; R29.6 Repeated falls; R44.3 Hallucinations, unspecified
CPT/HCPCS: 0240U; 36415; 71045; 80048; 80053; 81001; 83880; 85025; 87086; 96361; 96374; G0378; J0696; J7030

== ENCOUNTER 2020-11-11 17:40 | Outpatient (CLI) | payer MEDICARE ==
[2020-11-11 17:57] LABS: Bilirubin Small (Negative); Blood, Urine Trace (Negative); Clarity Clear (Clear); Glucose, Urine (Dipstick) Negative (Negative); Ketone, Urine Trace mg/dL (Negative); Leukocyte Trace (Negative); Nitrite Negative (Negative); Protein, Urine (Dipstick) 100 mg/dL (Neg-Trace); Specific Gravity, Urine 1.025 (1.005-1.030); pH, Urine 5.5 (5.0-9.0)
[2020-11-11 18:07] LABS: ALT (SGPT) Less than 6 U/L (8-55); AST (SGOT) 9 U/L (5-34); Alkaline Phosphatase 74 U/L (40-110); Anion Gap 18 mmol/L (10-20); BUN (Urea Nitrogen) 19 mg/dL (9.8-20.1); Bilirubin, Total 0.4 mg/dL (0.2-1.2); Calc. Creatinine Clearance 0 mL/min (70-130); Calcium 8.1 mg/dL (7.8-10.44); Carbon Dioxide 23 mmol/L (23-31); Chloride 103 mmol/L (98-107); Globulin 3.9 g/dL (2.4-3.5); Glucose 105 mg/dL (83-110); Potassium 3.6 mmol/L (3.5-5.1); Protein, Total 6.9 g/dL (5.8-8.1); Sodium 140 mmol/L (136-145)
[2020-11-11 18:16] LABS: #Lymphocytes 0.9 thou/uL (1.20-3.40); #Monocytes 0.4 thou/uL (0.11-0.59); #Neutrophils 6.2 thou/uL (1.40-6.50); %Basophils 0.3 % (0.0-1.0); %Eosinophils 0.5 % (0.0-10.0); %Lymphocytes 11.6 % (21.0-51.0); %Monocytes 5.2 % (0.0-10.0); %Neutrophils 82.4 % (42.0-75.0); Hemoglobin 8.9 g/dL (12.0-16.0); Mean Corpuscular HGB CONC 29.7 g/dL (32.0-36.0); Mean Corpuscular Hemoglobin 23.1 pg (27.0-31.0); Mean Corpuscular Volume 77.7 fL (78.0-98.0); Mean Platelet Volume 5.3 fL (7.4-10.4); Platelet Count 230 thou/uL (130-400); RBC Distribution Width 17.1 % (11.5-14.5); Red Blood Cell (RBC) Count 3.87 mill/uL (4.20-5.40); White Blood Cell (WBC) Count 7.5 thou/uL (4.8-10.8)
[2020-11-11 18:17] LABS: Bacteria/HPF Rare-Few HPF (None Seen); RBC/HPF 0-3 HPF (0-3); Squamous Epithelial 0-3 HPF (0-3)
[2020-11-11 18:43] LABS: Hypochromia SLIGHT = 6-15 cells (100X) (0-5/hpf); MDiff Complete? YES; Microcytosis SLIGHT = 6-15 cells (100X) (0-5/hpf)
== END 2020-11-11 17:41 | disposition home or self-care (01) ==
LOC: NAV LAB 17:40
PROVIDERS: ATTEND Family Medicine
DX: R39.9 Unspecified symptoms and signs involving the genitourinary system (principal); R29.6 Repeated falls; R44.3 Hallucinations, unspecified
CPT/HCPCS: 36415; 80053; 81001; 85025; 87086